=== PATIENT | female | born 1985 | race Caucasian/White ===

== ENCOUNTER 2017-05-07 20:58 | Emergency (ER) | payer SELFPAY ==
[~2017-05-07] VITALS: Ht 160 cm; Wt 47.6 kg
[2017-05-07 21:06] VITALS: BP 128/68
--- NOTE | 2017-05-07 21:21 | NUR ---
ABI MARTE AT BEDSIDE FOR EVAL.
== END 2017-05-07 21:34 | disposition home or self-care (01) ==
LOC: ER 21:02
DX: S69.91XA Unspecified injury of right wrist, hand and finger(s), initial encounter (principal); Z91.030 Bee allergy status; X58.XXXA Exposure to other specified factors, initial encounter; Y93.89 Activity, other specified; Y92.89 Other specified places as the place of occurrence of the external cause; Y99.8 Other external cause status
CPT/HCPCS: 99282; A4606; Z7610